=== PATIENT | female | born 1975 | race African-American/Black ===

== ENCOUNTER 2021-09-10 17:32 | Inpatient (IN) ==
[2021-09-10 18:43] LABS: Basophils % 0.1 % (0.0-0.8); Eosinophils % 0.1 % (0.00-10.9); Hemoglobin 14.3 GM/DL (12.0-16.0); Immature Granulocytes % 0.4 %; Immature Granulocytes Absolute 0.05 #; Lymphocytes # 1.4 10*3/uL (1.4-4.0); Lymphocytes % 11.2 % (21.3-54.2); Mean Corpuscular HGB Conc 32.5 GM/DL (32-36); Mean Corpuscular Volume 86.3 FL (87-102); Monocytes # 0.7 10*3/uL (0.11-0.8); Monocytes % 5.4 % (1.7-12.7); Neutrophils % 82.8 % (38.7-73.9); Platelet Count 297 T/CUMM (130-400); Red Cell Distribution Width 13.4 % (9.3-17.3); White Blood Count 12.2 T/CUMM (4-12)
[2021-09-10] MEDS ORDERED: METOCLOPRAMIDE 10 MG/2 ML VIAL IV STA (19:06)
[2021-09-10] MEDS ORDERED: PANTOPRAZOLE 40 MG VIAL IV STA (19:06)
[2021-09-10] MEDS ORDERED: MORPHINE 2 MG/1 ML SYRINGE IV STA (19:06)
[2021-09-10] MEDS ORDERED: SODIUM CHLORIDE 0.9% 1,000 ML IV STA (19:07)
[2021-09-10 19:08] LABS: Albumin 4.3 G/DL (3.4-5.0); Bilirubin,Total 0.7 MG/DL (0.20-1.00); Osmolality,Calculated 280.3 MOS/KG (273-304); Potassium 3.7 MMOL/L (3.5-5.1)
[2021-09-10] MEDS ORDERED: PROMETHAZINE 25 MG/1 ML VIAL IV STA (20:22)
[2021-09-10] MEDS: SODIUM CHLORIDE 0.9% 1,000 ML IV SCH (22:10)
[2021-09-10] MEDS: ONDANSETRON 4 MG/2 ML VIAL IV PRN (23:47)
[2021-09-10] MEDS: HYDROmorphone 1 MG/1 ML SYRINGE IV PRN (23:48)
[2021-09-11] MEDS: SODIUM CHLORIDE 0.9% 1,000 ML IV SCH ×2 (06:44→15:05)
[2021-09-11] MEDS: ONDANSETRON 4 MG/2 ML VIAL IV PRN ×3 (08:58→21:42)
[2021-09-11] MEDS: HYDROmorphone 1 MG/1 ML SYRINGE IV PRN ×3 (09:01→21:42)
[2021-09-12] MEDS: SODIUM CHLORIDE 0.9% 1,000 ML IV SCH ×3 (04:01→15:33)
[2021-09-12] MEDS: HYDROmorphone 1 MG/1 ML SYRINGE IV PRN ×4 (04:01→20:40)
[2021-09-12] MEDS: ONDANSETRON 4 MG/2 ML VIAL IV PRN ×4 (04:02→21:50)
[2021-09-13] MEDS: SODIUM CHLORIDE 0.9% 1,000 ML IV SCH ×3 (01:05→23:35)
[2021-09-13] MEDS: HYDROmorphone 1 MG/1 ML SYRINGE IV PRN ×5 (04:01→21:31)
[2021-09-13] MEDS: ONDANSETRON 4 MG/2 ML VIAL IV PRN ×5 (04:01→21:34)
[2021-09-13] MEDS ORDERED: HYDROmorphone 1 MG/1 ML SYRINGE IV PRN (10:19)
[2021-09-14] MEDS: SODIUM CHLORIDE 0.9% 1,000 ML IV SCH ×2 (02:30→16:21)
[2021-09-14] MEDS: HYDROmorphone 1 MG/1 ML SYRINGE IV PRN ×4 (03:18→20:58)
[2021-09-14] MEDS: ONDANSETRON 4 MG/2 ML VIAL IV PRN ×4 (03:20→21:01)
[2021-09-14 06:14] LABS: Basophils % 0.2 % (0.0-0.8); Eosinophils # 0.1 10*3/uL (0.0-0.87); Hematocrit 35.1 VOL% (35.7-47.0); Hemoglobin 11.2 GM/DL (12.0-16.0); Immature Granulocytes % 0.3 %; Immature Granulocytes Absolute 0.03 #; Lymphocytes # 2.3 10*3/uL (1.4-4.0); Lymphocytes % 25.9 % (21.3-54.2); Mean Corpuscular HGB Conc 31.9 GM/DL (32-36); Mean Corpuscular Volume 87.8 FL (87-102); Mean Platelet Volume 12.5 FL (9.6-12.0); Monocytes # 0.7 10*3/uL (0.11-0.8); Monocytes % 7.7 % (1.7-12.7); Neutrophils % 64.9 % (38.7-73.9); Platelet Count 142 T/CUMM (130-400); Red Cell Distribution Width 13.4 % (9.3-17.3); White Blood Count 8.7 T/CUMM (4-12)
[2021-09-14 06:31] LABS: Calcium 8.9 MG/DL (8.5-10.1); Osmolality,Calculated 277.3 MOS/KG (273-304); Potassium 3.4 MMOL/L (3.5-5.1)
[2021-09-14] MEDS ORDERED: propofoL 200 MG/20 ML VIAL IV ONE (06:35)
[2021-09-14] MEDS ORDERED: fentaNYL 100 MCG/2 ML VIAL ONE ×2 (06:35→08:00)
[2021-09-14] MEDS ORDERED: ROCURONIUM 50 MG/5 ML VIAL IV ONE (06:35)
[2021-09-14] MEDS ORDERED: SUCCINYLCHOLINE 200 MG/10 ML VIAL ONE (06:35)
[2021-09-14] MEDS ORDERED: MIDAZOLAM 2 MG/2 ML VIAL ONE (06:35)
[2021-09-14] MEDS ORDERED: LIDOCAINE 2% 5 ML VIAL ONE (06:35)
[2021-09-14] MEDS ORDERED: TISSUE ADHESIVE 1 EACH APPLICATOR TOP ONE (06:37)
[2021-09-14] MEDS ORDERED: BUPIVACAINE MPF 0.25% 30 ML VIAL ONE (06:37)
[2021-09-14] MEDS ORDERED: LIDOCAINE 1%/EPI INJ 20 ML VIAL ONE (06:37)
[2021-09-14] MEDS ORDERED: DEXTROSE 50% 25 GM/50 ML SYRINGE IV ONE (07:12)
[2021-09-14] MEDS ORDERED: ONDANSETRON 4 MG/2 ML VIAL ONE ×2 (07:23→09:50)
[2021-09-14] MEDS ORDERED: DEXAMETHASONE 4 MG/1 ML VIAL ONE (07:23)
[2021-09-14] MEDS ORDERED: LACTATED RINGERS 1,000 ML IV ONE ×2 (07:40→09:52)
[2021-09-14] MEDS ORDERED: KETOROLAC 30 MG/1 ML VIAL ONE (08:49)
[2021-09-14] MEDS ORDERED: SEVOFLURANE 1 UNIT/15 MINUTE INH ONE ×2 (08:49→10:09)
[2021-09-14] MEDS ORDERED: NEOSTIGMINE 10 MG/10 ML VIAL ONE (09:51)
[2021-09-14] MEDS ORDERED: GLYCOPYRROLATE 0.4 MG/2 ML VIAL ONE (09:51)
[2021-09-14] MEDS ORDERED: PHENYLEPHRINE 1 MG/10 ML SYRINGE IV ONE (09:52)
[2021-09-14 14:25] LABS: Basophils % 0.1 % (0.0-0.8); Hematocrit 40.2 VOL% (35.7-47.0); Hemoglobin 12.9 GM/DL (12.0-16.0); Immature Granulocytes % 0.2 %; Immature Granulocytes Absolute 0.02 #; Lymphocytes # 0.9 10*3/uL (1.4-4.0); Lymphocytes % 9.1 % (21.3-54.2); Mean Corpuscular HGB Conc 32.1 GM/DL (32-36); Mean Platelet Volume 9.6 FL (9.6-12.0); Monocytes # 0.7 10*3/uL (0.11-0.8); Monocytes % 7.2 % (1.7-12.7); Neutrophils % 83.4 % (38.7-73.9); Platelet Count 282 T/CUMM (130-400); Red Blood Count 4.62 MC/CUMM (3.8-5.5); Red Cell Distribution Width 13.4 % (9.3-17.3); White Blood Count 10.1 T/CUMM (4-12)
[2021-09-14 14:39] LABS: Calcium 9.1 MG/DL (8.5-10.1); Osmolality,Calculated 279.3 MOS/KG (273-304); Potassium 3.4 MMOL/L (3.5-5.1)
[2021-09-14 14:55] LABS: Band Neutrophils 1 % (0-10); Lymphocytes 5 % (20-55); Total Cells Counted 100
[2021-09-14 14:56] LABS: Platelet Estimate Adequate
[2021-09-15] MEDS: HYDROmorphone 1 MG/1 ML SYRINGE IV PRN ×3 (03:19→21:26)
[2021-09-15] MEDS: ONDANSETRON 4 MG/2 ML VIAL IV PRN ×3 (03:21→21:26)
[2021-09-15] MEDS: SODIUM CHLORIDE 0.9% 1,000 ML IV SCH ×2 (03:23→21:25)
[2021-09-15 05:14] LABS: Basophils % 0.2 % (0.0-0.8); Eosinophils # 0.1 10*3/uL (0.0-0.87); Eosinophils % 1.5 % (0.00-10.9); Hematocrit 33.7 VOL% (35.7-47.0); Hemoglobin 10.8 GM/DL (12.0-16.0); Immature Granulocytes % 0.4 %; Immature Granulocytes Absolute 0.03 #; Lymphocytes # 1.7 10*3/uL (1.4-4.0); Lymphocytes % 20.4 % (21.3-54.2); Mean Corpuscular Volume 86.6 FL (87-102); Mean Platelet Volume 10.7 FL (9.6-12.0); Monocytes # 0.8 10*3/uL (0.11-0.8); Monocytes % 9.4 % (1.7-12.7); Neutrophils % 68.1 % (38.7-73.9); Platelet Count 227 T/CUMM (130-400); Red Blood Count 3.89 MC/CUMM (3.8-5.5); Red Cell Distribution Width 13.3 % (9.3-17.3); White Blood Count 8.2 T/CUMM (4-12)
[2021-09-15 05:28] LABS: Calcium 8.7 MG/DL (8.5-10.1); Osmolality,Calculated 275.4 MOS/KG (273-304)
[2021-09-15 05:43] LABS: Lymphocytes 23 % (20-55); Total Cells Counted 100
[2021-09-15 05:44] LABS: Platelet Estimate Normal
[2021-09-15] MEDS: POTASSIUM CHLORIDE RIDER 10 MEQ/100 ML PREMIX IV PRN ×3 (09:12→13:39)
[2021-09-15] MEDS ORDERED: POTASSIUM CHLORIDE 20 MEQ TABLET PO ONE (17:00)
[2021-09-16] MEDS: SODIUM CHLORIDE 0.9% 1,000 ML IV SCH (05:36)
[2021-09-16] MEDS: HYDROmorphone 1 MG/1 ML SYRINGE IV PRN (05:36)
[2021-09-16] MEDS: ONDANSETRON 4 MG/2 ML VIAL IV PRN (05:36)
[2021-09-16 08:21] VITALS: BP 129/88
== END 2021-09-16 11:48 | disposition home or self-care (01) | DRG 330 ==
LOC: EDBD → EDUNIT# → N.ED 17:32 → N.5E 20:19
PROVIDERS: ADMIT Surgery; ATTEND Surgery